=== PATIENT | female | born 1990 | race American Indian/Alaskan Native ===

== ENCOUNTER 2017-01-11 09:35 | Emergency (ER) | payer MEDICAID ==
[2017-01-11 10:10] VITALS: BP 96/74
[2017-01-11 10:40] LABS: Basophils % (Auto) 0.4 % (0.0-1.8); Eosinophils % (Auto) 1.9 % (0.0-4.3); Hematocrit 41.7 % (30.3-42.9); Hemoglobin 13.8 gm/dl (10.1-14.3); Mean Corpuscular HGB Conc 33 % (30-34); Mean Corpuscular Hemoglobin 31 pg (28-32); Mean Corpuscular Volume 95 fl (79-97); Platelet Count 256 K/mm3 (140-440); Red Blood Count 4.41 M/mm3 (3.65-5.03); Red Cell Distribution Width 13.6 % (13.2-15.2); White Blood Count 9.4 K/mm3 (4.5-11.0)
[2017-01-11 10:56] LABS: Anion Gap 16 mmol/L; BUN/Creatinine Ratio 11.11; Blood Urea Nitrogen 10 mg/dL (7-17); Calcium 8.9 mg/dL (8.4-10.2); Carbon Dioxide 26 mmol/L (22-30); Chloride 101.4 mmol/L (98-107); Glucose 89 mg/dL (65-100); Potassium 4.6 mmol/L (3.6-5.0); Sodium 139 mmol/L (137-145)
[2017-01-11 11:16] LABS: Bilirubin,Urine NEG (Negative); Blood,Urine NEG (Negative); Ketones,Urine NEG (Negative); Leukocyte Esterase,Urine SM (Negative); Mucus,Urine FEW /HPF; Nitrite,Urine NEG (Negative); Protein,Urine <15 mg/dL mg/dL (Negative); Urobilinogen,Urine < 2.0 mg/dL (<2.0)
[2017-01-11] MEDS ORDERED: ZOLOFT PO ONE (14:15)
--- NOTE | 2017-01-11 14:16 | Emergency Department Report ---
ED N/V/D HPI - General Chief complaint: Nausea/Vomiting/Diarrhea Stated complaint: STOMACH VIRUS SYMPTOMS Source: patient Mode of arrival: Ambulatory Limitations: No Limitations - History of Present Illness Initial comments: 26-year-old female with history of depression and remote history of crack cocaine use presenting today because of nausea vomiting and diarrhea. Patient states it started 3 days ago soon after she had learned that a previous sexual partner who she had unprotected sex with a year ago multiple times was HIV positive. Patient is unsure if this is actually accurate information. She denies any fevers or chills. She thinks this may be more related to stress. She does stay at the [facility]. - Related Data Home Medications Medication Instructions Recorded Confirmed Last Taken Sertraline [Zoloft] 50 mg PO QDAY 01/11/17 01/11/17 01/10/17 09:00 buPROPion XL [Wellbutrin Xl] 150 mg PO QAM 01/11/17 01/11/17 01/10/17 09:00 hydrOXYzine PAMOATE [Vistaril] 50 mg PO QHS 01/11/17 01/11/17 01/10/17 21:00 risperiDONE [RisperDAL] 2 mg PO QHS 01/11/17 01/11/17 01/10/17 21:00 Allergies Allergy/AdvReac Type Severity Reaction Status Date / Time No Known Allergies Allergy Unverified 01/11/17 10:13 ED Review of Systems ROS: Stated complaint: STOMACH VIRUS SYMPTOMS Other details as noted in HPI Comment: All other systems reviewed and negative Constitutional: denies: chills, fever Cardiovascular: denies: chest pain Gastrointestinal: nausea, vomiting, diarrhea Skin: denies: rash Psychiatric: denies: anxiety ED Past Medical Hx - Past Medical History Hx Pulmonary Embolism: Yes Hx Psychiatric Treatment: Yes (MAJOR DEPRESSION / BIPOLAR / ANXIETY / PSYCHOSIS) Additional medical history: HEART MURMUR. DRUG ABUSE - Surgical History Additional Surgical History: D & C - Social History Smoking Status: Current Every Day Smoker Substance Use Type: None - Medications Home Medications: Home Medications Medication Instructions Recorded Confirmed Last Taken Type Sertraline [Zoloft] 50 mg PO QDAY 01/11/17 01/11/17 01/10/17 09:00 History buPROPion XL [Wellbutrin Xl] 150 mg PO QAM 0501/11/17 01/10/17 09:00 History hydrOXYzine PAMOATE [Vistaril] 50 mg PO QHS 01/11/17 01/11/17 01/10/17 21:00 History risperiDONE [RisperDAL] 2 mg PO QHS 01/11/17 01/11/17 01/10/17 21:00 History ED Physical Exam - General Limitations: No Limitations General appearance: alert, in no apparent distress - Head Head exam: Present: atraumatic - ENT ENT exam: Present: normal exam - Respiratory Respiratory exam: Present: normal lung sounds bilaterally. Absent: respiratory distress - Cardiovascular Cardiovascular Exam: Present: regular rate, normal rhythm - GI/Abdominal GI/Abdominal exam: Present: soft. Absent: distended, tenderness - Neurological Exam Neurological exam: Present: alert, oriented X3 - Psychiatric Psychiatric exam: Present: normal affect - Skin Skin exam: Present: intact ED Course Vital Signs 01/11/17 01/11/17 10:08 10:15 Temperature 97.9 F 97.9 F Pulse Rate 91 H 91 H Respiratory 18 16 Rate Blood Pressure 96/74 Blood Pressure 96/74 [Right] O2 Sat by Pulse 100 100 Oximetry ED Medical Decision Making - Lab Data Result diagrams: 01/11/17 10:27 01/11/17 10:27 - Medical Decision Making Ordered home morning medication of Zoloft 50 mg and Wellbutrin 150 mg that she had not taken it today. Her exam is very benign and she is not currently nauseous or having any vomiting or diarrhea in the emergency room. Rapid HIV test has been ordered. 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 Patient understood. She states she has no symptoms now and feels much better after hearing the news. No vomiting or diarrhea episodes while in the emergency room. Critical care attestation.: If time is entered above; I have spent that time in minutes in the direct care of this critically ill patient, excluding procedure time. ED Disposition Clinical Impression: Gastroenteritis Disposition: DISCHARGED TO HOME OR SELFCARE Is pt being admited?: No Condition: Stable Instructions: Gastroenteritis (ED) Additional Instructions: Please follow up with your primary care physician in the next 3-5 days. Return to the ER if your symptoms worsen or you develop new symptoms. Referrals: PRIMARY CARE, [Primary Care Provider] - 3-5 Days
[2017-01-11] MEDS ORDERED: WELLBUTRIN PO ONE (15:00)
[2017-01-11 15:54] LABS: HIV-1 Antigen p24 Non React (Non React); HIVR-1/2 Ab Non React (Non React)
[2017-01-11] MEDS ORDERED: ZOLOFT ONE (17:15)
== END 2017-01-11 17:30 | disposition home or self-care (01) ==
LOC: ED 09:35
DX: K52.9 Noninfective gastroenteritis and colitis, unspecified (principal); F31.9 Bipolar disorder, unspecified; F41.9 Anxiety disorder, unspecified; F17.200 Nicotine dependence, unspecified, uncomplicated; Z86.711 Personal history of pulmonary embolism
CPT/HCPCS: 36415; 80048; 81001; 84703; 85025; 87806; 99283

== ENCOUNTER 2017-01-14 14:34 | Outpatient (CLI) | payer MEDICAID ==
[2017-01-14 15:04] LABS: Bilirubin,Urine NEG (Negative); Blood,Urine NEG (Negative); Ketones,Urine NEG (Negative); Leukocyte Esterase,Urine SM (Negative); Mucus,Urine FEW /HPF; Nitrite,Urine NEG (Negative); Protein,Urine <15 mg/dL mg/dL (Negative); Urobilinogen,Urine < 2.0 mg/dL (<2.0)
--- NOTE | 2017-01-14 15:38 | XRay Report ---
ROUTINE CHEST, TWO VIEWS: HISTORY: Positive PPD. The trachea, heart, mediastinal contour, lung rincon and bony thorax are unremarkable. IMPRESSION: Unremarkable chest x-ray.
[2017-01-14 15:58] LABS: HIV-1 Antigen p24 Non React (Non React); HIVR-1/2 Ab Non React (Non React)
== END 2017-01-14 14:35 | disposition home or self-care (01) ==
LOC: XRAY 14:34
PROVIDERS: ATTEND Clinical Nurse Specialist Psychiatric/Mental Health
DX: F31.64 Bipolar disorder, current episode mixed, severe, with psychotic features (principal); R76.11 Nonspecific reaction to tuberculin skin test without active tuberculosis
CPT/HCPCS: 36415; 71020; 81001; 84702; 86592; 86695; 87806